=== PATIENT | female | born 1950 | race Caucasian/White ===

== ENCOUNTER 2017-02-27 11:31 | Outpatient (CLI) | payer OTHER ==
--- NOTE | 2017-02-28 16:32 | Mammography Report ---
DIGITAL SCREENING MAMMOGRAM: 02/27/2017 CLINICAL INDICATION: A 66-year-old nulliparous patient for screening. COMPARISON: 10/2014, 05/2013. TECHNIQUE: Routine CC and MLO projections were obtained of the breasts. The breasts demonstrate scattered fibroglandular densities bilaterally. Coarse and punctate, typical ly benign calcifications are present. No suspicious masses, clustered microcalcifications, or region s of architectural distortion are identified. IMPRESSION: BENIGN FINDINGS. RECOMMENDATION: ROUTINE ANNUAL SCREENING UNLESS OTHERWISE CLINICALLY INDICATED. BIRADS CATEGORY: 2, BENIGN FINDINGS. STANDARD QUALIFYING STATEMENTS 1. This examination was reviewed with the aid of Computed-Aided Detection (CAD). 2. A negative or benign imaging report should not delay biopsy if clinically suspicious findings are present. Consider surgical consultation if warranted. More than 5% of cancers are not identified b y imaging. 3. Dense breasts may obscure an underlying neoplasm. JOB #: [id number] EXT JOB #:[id number]
== END 2017-02-27 11:32 | disposition home or self-care (01) ==
LOC: DI 11:31
PROVIDERS: ATTEND Physician Assistant Medical
DX: Z12.31 Encounter for screening mammogram for malignant neoplasm of breast (principal)
CPT/HCPCS: 77067

== ENCOUNTER 2017-06-25 10:35 | Outpatient (CLI) | payer OTHER ==
[2017-06-25 17:55] LABS: BASOPHILS # (AUTO) 0.1 10^3/uL (0.0-0.1); BASOPHILS % (AUTO) 0.8 %; EOSINOPHILS # (AUTO) 0.2 10^3/uL (0.0-0.7); EOSINOPHILS % (AUTO) 1.8 %; LYMPHOCYTES # (AUTO) 2.4 10^3/uL (1.5-3.5); LYMPHOCYTES % (AUTO) 24.9 %; MEAN CORPUSCULAR HEMOGLOBIN 30.5 pg (27.0-31.0); MEAN CORPUSCULAR HGB CONC 33.3 g/dL (32.0-36.0); MEAN CORPUSCULAR VOLUME 91.6 fL (81.0-99.0); MEAN PLATELET VOLUME 9.3 fL (7.9-10.8); MONOCYTES % (AUTO) 9.9 %; NEUTROPHILS # (AUTO) 6.1 10^3/uL (1.5-6.6); NEUTROPHILS % (AUTO) 62.6 %; NUCLEATED RED BLOOD CELLS AUTO 0.1 /100WBC; RED BLOOD COUNT 4.91 10^6/uL (4.20-5.40); RED CELL DISTRIBUTION WIDTH 13.8 % (12.0-15.0); UNCORRECTED WHITE BLOOD COUNT 9.7 x10^3/uL; WHITE BLOOD COUNT 9.7 x10^3/uL (4.8-10.8)
[2017-06-25 18:09] LABS: ALBUMIN/GLOBULIN RATIO 1.3 (1.0-2.2); BILIRUBIN,TOTAL 0.8 mg/dL (0.2-1.0); BUN - BLOOD UREA NITROGEN 10 mg/dL (6-20); CALCIUM 9.2 mg/dL (8.5-10.3); CARBON DIOXIDE - CO2 29 mmol/L (21-32); CHLORIDE 103 mmol/L (101-111); CHOL/HDL RATIO 3.3 (<4.4); CHOLESTEROL 260 mg/dL; CREATININE 0.6 mg/dL (0.4-1.0); GFR - MDRD 101 (>89); GLUCOSE 89 mg/dL (70-100); HDL CHOLESTEROL 79 mg/dL; POTASSIUM 3.6 mmol/L (3.5-5.0); SODIUM 138 mmol/L (135-145); TOTAL PROTEIN 6.8 g/dL (6.7-8.2); TRIGLYCERIDES 113 mg/dL; VLDL CHOLESTEROL 23 mg/dL
== END 2017-06-25 10:36 | disposition home or self-care (01) ==
LOC: LAB.F 10:35
PROVIDERS: ATTEND Physician Assistant Medical
DX: M35.3 Polymyalgia rheumatica (principal); M25.50 Pain in unspecified joint; M79.1 Myalgia; Z51.81 Encounter for therapeutic drug level monitoring; Z79.899 Other long term (current) drug therapy; E78.5 Hyperlipidemia, unspecified
CPT/HCPCS: 36415; 80053; 80061; 85025; 85651; 86140

== ENCOUNTER 2017-07-31 08:00 | Outpatient (CLI) | payer OTHER | END 2017-07-31 08:01 | disposition home or self-care (01) | LOC: LAB.WCP 08:00 | PROVIDERS: ATTEND Physician Assistant Medical | DX: Z11.59 Encounter for screening for other viral diseases (principal); W27.3XXA Contact with needle (sewing), initial encounter; Z11.4 Encounter for screening for human immunodeficiency virus [HIV] | CPT/HCPCS: 36415; 86317; 86704; 86803; 87340; 87389 ==

== ENCOUNTER 2017-09-02 10:37 | Outpatient (CLI) | payer OTHER ==
--- NOTE | 2017-09-05 12:32 | DEXA Report ---
DEXA SCAN: 09/02/2017 CLINICAL INDICATION: Postmenopausal. TECHNIQUE: Dual energy x-ray absorptiometry (DXA) was performed on a 1SDK system. Regions measured are the AP spine, femoral neck, and, if needed, forearm. COMPARISON: None. In accordance with the International Society for Clinical Densitometry (ISCD) guidelines, data from previous exams may be reanalyzed using current recommendations and techniques. This is done to allow a more accurate basis for comparison with the current study. FINDINGS: The data for the lumbar spine is as follows: REGION BMD (g/cm/cm) T-SCORE Z-SCORE L1 1.075 -0.5 0.4 L2 1.224 0.2 1.0 L3 1.175 -0.2 0.6 L4 1.197 0.0 0.8 TOTAL 1.170 -0.1 0.7 NOTE: All evaluable vertebrae are used for classification. The data for the hip is as follows: REGION BMD (g/cm/cm) T-SCORE Z-SCORE Neck 0.749 -2.1 -1.1 TOTAL 0.819 -1.5 -0.9 IMPRESSION THE WHO CLASSIFICATION BASED ON THE INTERNATIONAL REFERENCE STANDARD: OSTEOPENIA. THE FRACTURE RISK: INCREASED. RECOMMENDATION: Patients with diagnosis of osteoporosis or osteopenia should have regular bone mineral density assessment. For those eligible for Medicare, routine testing is allowed once every 2 years. Testing frequency can be increased for patients who have rapidly progressing disease or for those who are receiving medical therapy to restore bone mass. COMMENT: World Health Organization (WHO) definitions for osteoporosis and osteopenia: NORMAL BMD: T-score at -1.0 or higher, fracture risk is low. OSTEOPENIA BMD: T-score between -1.0 and -2.5, fracture risk is increased. OSTEOPOROSIS BMD: T-score at -2.5 or lower, fracture risk high. National Osteoporosis Foundation recommends: 1. Obtain adequate dietary calcium (at least 1200 mg per day) and vitamin D ( 400-800 international units per day). 2. Participate, as appropriate, in regular weight bearing and muscle- strengthening exercise. 3. Avoid tobacco use and reduce alcohol and caffeine intake. 4. For more detailed information see the website at www.NOF.org. BUFFY TD: 09/02/2017 16:39 [facility]ENTERMadel[facility]
== END 2017-09-02 10:38 | disposition home or self-care (01) ==
LOC: DI 10:37
PROVIDERS: ATTEND Internal Medicine Rheumatology
DX: M81.8 Other osteoporosis without current pathological fracture (principal); M85.80 Other specified disorders of bone density and structure, unspecified site
CPT/HCPCS: 77080

== ENCOUNTER 2018-10-06 10:14 | Outpatient (CLI) | payer OTHER ==
[2018-10-06 17:57] LABS: BASOPHILS # (AUTO) 0.1 10^3/uL (0.0-0.1); BASOPHILS % (AUTO) 0.7 %; EOSINOPHILS # (AUTO) 0.2 10^3/uL (0.0-0.7); EOSINOPHILS % (AUTO) 2.2 %; HGB - HEMOGLOBIN 15.9 g/dL (12.0-16.0); LYMPHOCYTES # (AUTO) 2.8 10^3/uL (1.5-3.5); LYMPHOCYTES % (AUTO) 32.4 %; MEAN CORPUSCULAR HEMOGLOBIN 30.5 pg (27.0-31.0); MEAN CORPUSCULAR HGB CONC 33.4 g/dL (32.0-36.0); MEAN CORPUSCULAR VOLUME 91.3 fL (81.0-99.0); MEAN PLATELET VOLUME 8.7 fL (7.9-10.8); MONOCYTES % (AUTO) 11.4 %; NEUTROPHILS # (AUTO) 4.7 10^3/uL (1.5-6.6); NEUTROPHILS % (AUTO) 53.3 %; PLT - PLATELET COUNT 212 10^3/uL (130-450); RED BLOOD COUNT 5.21 10^6/uL (4.20-5.40); RED CELL DISTRIBUTION WIDTH 14.2 % (12.0-15.0); WHITE BLOOD COUNT 8.8 x10^3/uL (4.8-10.8)
[2018-10-06 18:21] LABS: ALBUMIN 3.8 g/dL (3.2-5.5); ALBUMIN/GLOBULIN RATIO 1.2 (1.0-2.2); ALKALINE PHOSPHATASE 40 IU/L (42-121); ALT ALANINE AMINOTRANSFERASE 63 IU/L (10-60); AST ASPARTATE AMINOTRANSFERASE 54 IU/L (10-42); BILIRUBIN,TOTAL 0.9 mg/dL (0.2-1.0); BUN - BLOOD UREA NITROGEN 15 mg/dL (6-20); CALCIUM 9.6 mg/dL (8.5-10.3); CARBON DIOXIDE - CO2 30 mmol/L (21-32); CHLORIDE 99 mmol/L (101-111); CHOL/HDL RATIO 3.2 (<4.4); CHOLESTEROL 259 mg/dL; CREATININE 0.6 mg/dL (0.4-1.0); GFR - MDRD 100 (>89); GLUCOSE 87 mg/dL (70-100); HDL CHOLESTEROL 81 mg/dL; LDL CHOLESTEROL,CALCULATED 153 mg/dL; LDL/HDL RATIO 1.9 (<4.4); SODIUM 140 mmol/L (135-145); VLDL CHOLESTEROL 25 mg/dL
== END 2018-10-06 10:15 | disposition home or self-care (01) ==
LOC: LAB.F 10:14
PROVIDERS: ATTEND Internal Medicine Rheumatology
DX: M35.3 Polymyalgia rheumatica (principal); M25.50 Pain in unspecified joint; E78.5 Hyperlipidemia, unspecified; I10 Essential (primary) hypertension
CPT/HCPCS: 36415; 80053; 80061; 83721; 85025; 85651; 86140

== ENCOUNTER 2018-10-23 10:46 | Outpatient (CLI) | payer MEDICARE | END 2018-10-23 10:47 | disposition home or self-care (01) | LOC: LAB.F 10:46 | PROVIDERS: ATTEND Physician Assistant Medical | DX: R74.8 Abnormal levels of other serum enzymes (principal) | CPT/HCPCS: 36415; 80053 ==

== ENCOUNTER 2018-11-17 11:10 | Outpatient (CLI) | payer MEDICARE ==
--- NOTE | 2018-11-17 14:36 | Ultrasound Report ---
Reason: AAA SCREEN- TOBACCO ABUSE Procedure Date: 11/17/2018 Accession Number: [id number] / [id number] Procedure: US - Aorta Screening CPT Code: FULL RESULT: EXAM: AORTIC DOPPLER ULTRASOUND EXAM DATE: 11/17/2018 11:34 AM. CLINICAL HISTORY: AAA SCREEN- TOBACCO ABUSE. COMPARISON: None. TECHNIQUE: Real-time sonographic imaging of retroperitoneal vascular structures, including color-flow, Doppler flow and spectral analysis was performed by the hospital secretary. Multiple airline security representative static images were saved for review. FINDINGS: Aorta: The abdominal aorta was adequately visualized. No evidence for abdominal aortic aneurysm. Aorta: Proximal: Sagittal AP: 2.4 cm. Mid: Transverse: 1.9 x 1.8 cm. Distal: Transverse: 1.7 x 1.6 cm. Caliber WNL: Yes. Plaque visualized: No. Iliacs: Right Iliac: Transverse: 1.1 x 1.0 cm. Left Iliac: Transverse: 1.0 x 0.9 cm. Iliac Vessels: The visualized proximal common iliac arteries are normal in caliber. Other: None. IMPRESSION: No abdominal aortic aneurysm is identified. RADIA
== END 2018-11-17 11:11 | disposition home or self-care (01) ==
LOC: DI 11:10
PROVIDERS: ATTEND Physician Assistant Medical
DX: Z13.6 Encounter for screening for cardiovascular disorders (principal); Z72.0 Tobacco use
CPT/HCPCS: 76706

== ENCOUNTER 2018-12-10 10:28 | Outpatient (CLI) | payer MEDICARE ==
[2018-12-10 10:52] LABS: ALBUMIN 3.9 g/dL (3.2-5.5); ALBUMIN/GLOBULIN RATIO 1.1 (1.0-2.2); BILIRUBIN,TOTAL 1.2 mg/dL (0.2-1.0); CALCIUM 10.1 mg/dL (8.5-10.3); CREATININE 1.1 mg/dL (0.4-1.0); TOTAL PROTEIN 7.4 g/dL (6.7-8.2)
== END 2018-12-10 10:29 | disposition home or self-care (01) ==
LOC: LAB 10:28
PROVIDERS: ATTEND Physician Assistant Medical
DX: R74.8 Abnormal levels of other serum enzymes (principal)
CPT/HCPCS: 36415; 80053

== ENCOUNTER 2018-12-11 16:19 | Outpatient (CLI) | payer MEDICARE ==
--- NOTE | 2018-12-12 10:16 | Mammography Report ---
Reason: SCREENING MAMMO Procedure Date: 12/11/2018 Accession Number: [id number] / [id number] Procedure: RANGEL - Screening Mammo w/Olvin CPT Code: FULL RESULT: EXAM: Screening Mammo w/Olvin DATE: 12/11/2018 5:10 PM CLINICAL HISTORY: Screening encounter. History of nulliparity. TECHNIQUE: Bilateral CC and MLO views were obtained. COMPARISON: 02/27/2017 and 06/11/2013. FINDINGS: The breasts demonstrate scattered fibroglandular densities bilaterally. There are coarse typically benign calcifications. No suspicious masses, clustered microcalcifications, or regions of architectural distortion are identified. IMPRESSION: Benign findings RECOMMENDATION: Routine annual screening unless otherwise clinically indicated. BIRADS CATEGORY 2: Benign findings STANDARD QUALIFYING STATEMENTS: 1. This examination was not reviewed with the aid of Computer-Aided Detection (CAD). 2. A negative or benign imaging report should not delay biopsy if clinically suspicious findings are present. Consider surgical consultation if warrented. More than 5% of cancers are not identified by imaging. 3. Dense breasts may obscure an underlying neoplasm. 4. This examination was reviewed with the aid of 3D breast imaging (tomosynthesis).
== END 2018-12-11 16:20 | disposition home or self-care (01) ==
LOC: DI 16:19
DX: Z12.31 Encounter for screening mammogram for malignant neoplasm of breast (principal)
CPT/HCPCS: 77063; 77067

== ENCOUNTER 2019-03-10 07:28 | Day surgery (SDC) | payer MEDICARE ==
[2019-03-10] MEDS ORDERED: CEFAZOLIN SODIUM IN 0.9 % NACL 2 GM/100 ML BAG IV ONE (07:36)
[2019-03-10] MEDS ORDERED: LACTATED RINGERS 1,000 ML IV ONE ×2 (08:01→11:16)
--- NOTE | 2019-03-10 08:12 | ANESTHESIA ---
Pre-Anesthesia VS, & Labs - Diagnosis acalculous cholecystitis - Procedure laparoscopic cholecystectomy Vital Signs: Temp Pulse Resp BP Pulse Ox 36.3 C L 73 16 119/81 H 93 03/10/19 07:41 03/10/19 07:41 03/10/19 07:41 03/10/19 07:41 03/10/19 07:41 Height 5 ft 2 in Weight (kg) 83.3 kg - NPO >8 hours - Is Patient ?: Not Applicable Home Medications and Allergies Home Medications: Ambulatory Orders Albuterol Sulf [Ventolin Hfa Inhaler] 1 - 2 puffs INH Q4HR PRN 03/09/19 Alendronate [Fosamax] 70 mg PO Q7D 03/09/19 Ketoconazole 1 applic TP BID PRN 03/09/19 Triamterene/Hydrochlorothiazid [Triamterene-Hctz 37.5-25 mg Cp] 1 each PO DAILY 03/09/19 Valacyclovir HCl [Valtrex] 500 mg PO BID PRN 03/09/19 oxyCODONE [Roxicodone] 1 PRN 03/10/19 Lisinopril 40 mg PO DAILY 07/21/13 Prednisone 2 - 2.5 mg PO DAILY 07/21/13 Albuterol Sulf [Ventolin Hfa Inhaler] 1 - 2 puffs INH Q4HR PRN 03/09/19 Alendronate [Fosamax] 70 mg PO Q7D 03/09/19 Ketoconazole 1 applic TP BID PRN 03/09/19 Triamterene/Hydrochlorothiazid [Triamterene-Hctz 37.5-25 mg Cp] 1 each PO DAILY 03/09/19 Valacyclovir HCl [Valtrex] 500 mg PO BID PRN 03/09/19 Allergies/Adverse Reactions: Allergies Allergy/AdvReac Type Severity Reaction Status Date / Time NSAIDS (Non-Steroidal AdvReac severe Verified 03/09/19 12:06 Anti-Inflamma stomach pain Anes History & Medical History - Anesthetic History Anesthesia Complications: reports: No previous complications Family history of Anesthesia Complications: Denies Family history of Malignant Hyperthermia: Denies (polymyalgia rhumatica) - Medical History Cardiovascular: reports: Hypertension, Other Pulmonary: reports: None Gastrointestinal: reports: Other Urinary: reports: None Musculoskeletal: reports: Other Endocrine/Autoimmune: reports: None Skin: reports: None Smoking Status: Never smoker - Surgical History Cardiothoracic: Cardiac catheterization Orthopedic: Knee replacement, Arthroscopic surgery, Other Exam General: Alert, Oriented x3, Cooperative, No acute distress Dental: Other (caps) Mouth Openin Fingerbreadth Neck Mobility: Normal Mallampati classification: II Thyromental Distance: 4-6 cm Respiratory: Lungs clear, Normal breath sounds, No respiratory distress, No accessory muscle use Cardiovascular: Regular rate, Normal S1, Normal S2, No murmurs Plan Anesthesia Type: General Consent for Procedure(s) Verified and Reviewed: No Code Status: Attempt Resuscitation ASA classification: 2-Mild systemic disease Is this case an emergency?: No
[2019-03-10] MEDS ORDERED: LIDOCAINE 1% 50 ML MDV ONE (08:54)
[2019-03-10] MEDS ORDERED: BUPIVACAINE 0.5%-EPI 1:200000 PF 30 ML VIAL ONE (08:54)
[2019-03-10] MEDS ORDERED: ONDANSETRON 4 MG/2 ML VIAL IVP ONE (09:00)
[2019-03-10] MEDS ORDERED: NEOSTIGMINE 1 MG/1 ML 10 ML MDV IVP ONE (09:00)
[2019-03-10] MEDS ORDERED: GLYCOPYRROLATE 1 MG/5 ML VIAL IVP ONE (09:00)
[2019-03-10] MEDS ORDERED: MIDAZOLAM 2 MG/2 ML VIAL IVP ONE (09:00)
[2019-03-10] MEDS ORDERED: PROPOFOL 200 MG/20 ML VIAL IVP ONE (09:00)
[2019-03-10] MEDS ORDERED: LIDOCAINE-MPF 2% 5 ML VIAL IM ONE (09:00)
[2019-03-10] MEDS ORDERED: SODIUM CHLORIDE 0.9% 10 ML VIAL IV ONE (09:00)
[2019-03-10] MEDS ORDERED: fentaNYL 100 MCG/2 ML VIAL IVP ONE (09:00)
[2019-03-10] MEDS ORDERED: ROCURONIUM 50 MG/5 ML VIAL IVP ONE (09:00)
[2019-03-10] MEDS ORDERED: DEXAMETHASONE 4 MG/ML VIAL IVP ONE (09:00)
[2019-03-10] MEDS ORDERED: ACETAMINOPHEN 1,000 MG/100 ML 100 ML IV ONE (09:42)
[2019-03-10] MEDS ORDERED: LIDOCAINE 1% 10 ML MDV SUBQ ONE (09:43)
[2019-03-10] MEDS ORDERED: BUPIVACAINE 0.5%-EPI 1:200000 PF 30 ML VIAL SUBQ ONE (09:43)
--- NOTE | 2019-03-10 10:17 | OPERATIVE REPORT ---
Operative Report - General Procedure Date: 03/10/19 Planned Procedure: Laparoscopic cholecystectomy Pre-Op Diagnosis: Acalculus cholecystitis Procedure Performed: Laparoscopic cholecystectomy Post Op Diagnosis: Same - Procedure Note Primary Surgeon: Taylor Anesthesia Provider: SAY Lala Anesthesia Technique: General ET tube, Local Pathology: Gall bladder in formalin to pathology IV Fluids (mL): 600 Estimated Blood Loss (mL): 25 Findings: Distended and thin walled gall bladder Complications: None apparent - Other Other Information/Narrative: After obtaining informed consent, the patient is brought to the operating room and placed in the supine position on the operating table. Following successful induction of general endotracheal anesthesia, appropriate padding of all bony prominences, and placement of appropriate monitors, the abdomen is prepped and draped in the standard surgical fashion. A timeout was held per DCOAP protocol. Following infiltration with local anesthetic to create a field block, an incision was created inferior to the umbilicus and carried down through the skin and subtendinous tissue to reveal the fascia below 2-0 Vicryl retention sutures were placed on either side of the midline and the abdomen was entered using 15 blade scalpel and under direct vision. A 10 mm blunt Wan balloon trocar was placed in the abdominal cavity and it was insufflated to 15 mmHg pressure. The patient was placed in reverse Trendelenburg position with the left side rotated toward the floor.We were able to visualize the right upper quadrant, gallbladder, liver, and surrounding structures.A second trocar was placed in the mid epigastrium, a 5 mm trocar. 2 more 5 mm trochars were placed in the right upper quadrant.The gallbladder was elevated superiorly and to the patient's right side. This allowed us to visualize the cholecystohepatoduodenal ligament. We were able to clearly identify the cystic duct, and common duct as well as the right hepatic artery and the cystic artery. We addressed the cystic duct first by clipping it 3 times proximally and one time distally with a 5 mm clip door opener. We then addressed the cystic artery clipping it twice proximally and once distally. The gallbladder was then liberated from its bed in the liver using Bovie cautery. It was placed in a bag and removed via the umbilical port with the camera in the epigastric position. We then replaced the camera and examined the abdominal cavity carefully.Cavity was irrigated copiously with warm saline solution, checked for hemostasis carefully, and then aspirated free of all fluid and particulate matter.The patient was flattened in the intra- abdominal compartment examined once more. We were satisfied that hemostasis was clearly obtained, the trochars were removed under direct vision and the abdomen was desufflated. The umbilical incision was closed with interrupted 0 Vicryl suture and Monocryl stitches were placed in all of the skin sites.All sponge, needle, and instrument counts were correct at the conclusion of the case. The patient was allowed to awaken from anesthesia without difficulty and taken to the postanesthesia care unit in good condition.
[2019-03-10] MEDS ORDERED: ONDANSETRON 4 MG/2 ML VIAL IVP PRN (10:22)
[2019-03-10] MEDS ORDERED: oxyCODONE 5 MG TABLET PO PRN (10:22)
[2019-03-10] MEDS: fentaNYL 100 MCG/2 ML VIAL ONE ×2 (10:42→10:54)
[2019-03-10] MEDS ORDERED: HYDROmorphone 0.5 MG/0.5 ML SYRINGE ONE (11:13)
[2019-03-10] MEDS ORDERED: oxyCODONE 5 MG TABLET ONE (11:38)
[2019-03-10 12:16] VITALS: BP 97/67
== END 2019-03-10 07:29 | disposition home or self-care (01) ==
LOC: SDS 07:28
PROVIDERS: ATTEND Surgery
PROC: 0FT44ZZ Resection of Gallbladder, Percutaneous Endoscopic Approach (ICD-10-PCS; principal; 2019-03-10 08:30)
DX: K81.1 Chronic cholecystitis (principal); I10 Essential (primary) hypertension; Z87.891 Personal history of nicotine dependence
CPT/HCPCS: 47562; 93005; A9270; J0131; J0690; J1170; J7120

== ENCOUNTER 2019-03-12 19:28 | Emergency (ER) | payer MEDICARE ==
[2019-03-12 19:57] LABS: BASOPHILS # (AUTO) 0.1 10^3/uL (0.0-0.1); BASOPHILS % (AUTO) 0.3 %; HGB - HEMOGLOBIN 13.9 g/dL (12.0-16.0); LYMPHOCYTES # (AUTO) 0.9 10^3/uL (1.5-3.5); LYMPHOCYTES % (AUTO) 3.7 %; MEAN CORPUSCULAR HEMOGLOBIN 31.2 pg (27.0-31.0); MEAN CORPUSCULAR HGB CONC 32.9 g/dL (32.0-36.0); MEAN CORPUSCULAR VOLUME 95.1 fL (81.0-99.0); MEAN PLATELET VOLUME 9.5 fL (7.9-10.8); MONOCYTES # (AUTO) 1.6 10^3/uL (0.0-1.0); NEUTROPHILS # (AUTO) 20.4 10^3/uL (1.5-6.6); PLT - PLATELET COUNT 164 10^3/uL (130-450); RED BLOOD COUNT 4.45 10^6/uL (4.20-5.40); RED CELL DISTRIBUTION WIDTH 13.6 % (12.0-15.0); WHITE BLOOD COUNT 23.4 x10^3/uL (4.8-10.8)
[2019-03-12 20:06] LABS: ALBUMIN 3.9 g/dL (3.2-5.5); BILIRUBIN,TOTAL 1.8 mg/dL (0.2-1.0); CALCIUM 9.6 mg/dL (8.5-10.3); CREATININE 1.2 mg/dL (0.4-1.0); TOTAL PROTEIN 7.8 g/dL (6.7-8.2)
[2019-03-12] MEDS ORDERED: ACETAMINOPHEN 1,000 MG/100 ML 100 ML IV STA (20:06)
[2019-03-12] MEDS ORDERED: SODIUM CHLORIDE 0.9% 1,000 ML IV ONE ×2 (20:07)
[2019-03-12] MEDS ORDERED: VANCOMYCIN INJ 2 GM in SODIUM CHLORIDE 0.9% 500 ML IV STA (20:08)
[2019-03-12] MEDS ORDERED: ONDANSETRON 4 MG/2 ML VIAL IVP STA ×2 (20:08→23:49)
[2019-03-12] MEDS ORDERED: PIPERACILLIN/TAZOBACTAM 4.5 GM in SODIUM CHLORIDE 0.9% MINIBAG 100 ML IV STA (20:08)
[2019-03-12] MEDS ORDERED: metroNIDAZOLE 500 MG/100 ML 500 MG/100 ML BAG IV ONE (20:09)
[2019-03-12 20:16] LABS: INR 1.1 (0.8-1.2); PT - PROTHROMBIN TIME 12.7 secs (9.9-12.6)
[2019-03-12 20:23] LABS: PARTIAL THROMBOPLASTIN TIME 25.5 secs (24.9-33.3)
--- NOTE | 2019-03-12 20:23 | XRAY Report ---
Reason: fever Procedure Date: 03/12/2019 Accession Number: [id number] / [id number] Procedure: XR - Chest 1 View X-Ray CPT Code: 41935 FULL RESULT: EXAM: CHEST RADIOGRAPHY EXAM DATE: 03/12/2019 08:02 PM. CLINICAL HISTORY: Fever. COMPARISON: 06/24/2014 2:26 PM. TECHNIQUE: 1 view. FINDINGS: Lungs/Pleura: Lesser degree of inspiration compared to previous exam. Small bilateral pleural effusions. Possible left basilar infiltrate versus atelectasis. Clear upper lung zones. No pneumothorax. Mediastinum: Within exam limitations, the cardiomediastinal contour is normal. Other: None. IMPRESSION: Left basilar atelectasis versus infiltrate with small bilateral pleural effusions. RADIA
[2019-03-12] MEDS ORDERED: IOVERSOL 320 100 ML VIAL IVP ONE ×2 (20:29→21:05)
[2019-03-12 20:34] LABS: BILIRUBIN,URINE NEGATIVE (NEGATIVE); GLUCOSE, URINE (UA) NEGATIVE (NEGATIVE); KETONES,URINE (UA) 15 mg/dL (NEGATIVE); LEUKOCYTE ESTERASE, URINE NEGATIVE (NEGATIVE); NITRITE,URINE NEGATIVE (NEGATIVE); OCCULT BLOOD,URINE SMALL (NEGATIVE); PROTEIN,URINE 30 mg/dL (NEGATIVE); UROBILINOGEN,URINE 0.2 (NORMAL) E.U./dL (NORMAL)
[2019-03-12 20:36] LABS: CLARITY,URINE CLEAR (CLEAR)
[2019-03-12] MEDS ORDERED: WATER FOR INJECTION,STERILE 40 ML ONE (20:42)
[2019-03-12 20:46] LABS: BACTERIA,URINE Rare /HPF (None Seen); CASTS, URINE 0-2 Hyaline Casts /LPF; RBC,URINE 0-5 /HPF (0-5); SQUAMOUS EPITHELIAL CELL,UR FEW Squamous (<= Few)
[2019-03-12 20:59] LABS: PLATELET ESTIMATE, MANUAL NORMAL (130-450,000) (NORMAL); PLATELET MORPHOLOGY NORMAL APPEARANCE (NORMAL); RBC MORPHOLOGY (MULTIPLE) NORMAL APPEARANCE (NORMAL)
--- NOTE | 2019-03-12 21:15 | ED Physician Documentation ---
History of Present Illness - Stated complaint Stated Complaint: FEVER/ABD PX - Chief complaint Chief Complaint: Abd Pain - History obtained from History obtained from: Patient, Family - History of Present Illness Timing: How many days ago (2) Pain level max: 10 Pain level now: 10 - Additonal information Additional information: 68-year-old female status post laparoscopic cholecystectomy 2 days ago. Fevers of 10 2-1 03 since that time. Continued right upper quadrant and right side pain. Not well controlled at home. Not able to eat or drink. Has not eaten or drank today. Nothing makes it better. Worse with movement and palpation Review of Systems Ten Systems: 10 systems reviewed and negative Constitutional: reports: Fever, Chills Nose: denies: Rhinorrhea / runny nose, Congestion Throat: denies: Sore throat Cardiac: denies: Chest pain / pressure Respiratory: reports: Wheezing. denies: Cough Skin: denies: Rash Musculoskeletal: denies: Neck pain, Back pain Neurologic: denies: Headache PD PAST MEDICAL HISTORY - Past Medical History Past Medical History: Yes Cardiovascular: Hypertension, Other Respiratory: None Endocrine/Autoimmune: None GI: Other : None HEENT: None Psych: None Musculoskeletal: Other Derm: None - Past Surgical History Past Surgical History: Yes General: Cholecystectomy Ortho: Knee replacement, Arthroscopic surgery, Other Cardiovascular: Cardiac catheterization - Present Medications Home Medications: Ambulatory Orders Medication Instructions Recorded Confirmed Lisinopril 40 mg PO DAILY 07/21/13 03/10/19 Prednisone 2 - 2.5 mg PO DAILY 07/21/13 03/10/19 Albuterol Sulf [Ventolin Hfa 1 - 2 puffs INH Q4HR PRN 03/09/19 03/10/19 Inhaler] Alendronate [Fosamax] 70 mg PO Q7D 03/09/19 03/10/19 Ketoconazole 1 applic TP BID PRN 03/09/19 03/10/19 Triamterene/Hydrochlorothiazid 1 each PO DAILY 03/09/19 03/10/19 [Triamterene-Hctz 37.5-25 mg Cp] Valacyclovir HCl [Valtrex] 500 mg PO BID PRN 03/09/19 03/10/19 oxyCODONE [Roxicodone] 1 PRN 03/10/19 oxyCODONE/ACET 5/325 [Percocet 5 1 each PO Q4-6H #30 tablet MDD 6 03/10/19 mg/325 mg] - Allergies Allergies/Adverse Reactions: Allergies Allergy/AdvReac Type Severity Reaction Status Date / Time NSAIDS (Non-Steroidal AdvReac severe Verified 03/12/19 19:37 Anti-Inflamma stomach pain - Social History Does the pt smoke?: No Smoking Status: Never smoker Does the pt drink ETOH?: No Does the pt have substance abuse?: No - Immunizations Immunizations are current?: Yes - POLST Patient has POLST: No PD ED PE NORMAL - Vitals Vital signs reviewed: Yes - General General: Alert and oriented X 3, No acute distress, Other (Ill-appearing) - HEENT HEENT: Moist mucous membranes, Pharynx benign - Neck Neck: Supple, no meningeal sign - Cardiac Cardiac: Other (Tachycardic) - Respiratory Respiratory: No respiratory distress, Other (Wheezing bilateral) - Abdomen Abdomen: Soft, Non distended, Other (Tender to palpation right upper quadrant. Positive rebound and guarding) - Back Back: Other (Right CVA tenderness) - Derm Derm: Warm and dry, No rash - Extremities Extremities: No edema - Neuro Neuro: Alert and oriented X 3 - Psych Psych: Normal mood, Normal affect Results - Vitals Vitals: Vital Signs - 24 hr 03/12/19 03/12/19 03/12/19 19:31 19:57 20:06 Temperature 39.5 C H Heart Rate 128 H 128 H 123 H Respiratory 14 32 H 29 H Rate Blood Pressure 144/79 H 161/84 H 147/89 H O2 Saturation 90 L 94 94 03/12/19 03/12/19 03/12/19 20:30 20:39 21:07 Temperature 37.7 C H Heart Rate 128 H 122 H Respiratory 25 H 25 H Rate Blood Pressure 147/89 H 136/80 H O2 Saturation 94 93 03/12/19 03/12/19 03/12/19 21:13 21:30 22:00 Temperature 37.5 C Heart Rate 114 H 107 H Respiratory 19 18 Rate Blood Pressure 102/75 112/79 O2 Saturation 94 94 03/12/19 03/12/19 22:30 23:05 Temperature 36.8 C Heart Rate 97 Respiratory 16 Rate Blood Pressure 106/73 O2 Saturation 95 Oxygen O2 Source Nasal cannula Oxygen Flow Rate 2 - Labs Labs: Laboratory Tests 03/12/19 03/12/19 03/12/19 19:45 19:45 19:45 WBC 23.4 H RBC 4.45 Hgb 13.9 Hct 42.3 MCV 95.1 MCH 31.2 H MCHC 32.9 RDW 13.6 Plt Count 164 MPV 9.5 Neut # (Auto) 20.4 H Lymph # (Auto) 0.9 L [place] # (Auto) 1.6 H Eos # (Auto) 0.0 Baso # (Auto) 0.1 Absolute Nucleated RBC 0.00 Nucleated RBC % 0.0 Manual Slide Review Indicated WBC Morphology NORMAL APPEARANCE Platelet Estimate NORMAL (130-450,000) Platelet Morphology NORMAL APPEARANCE RBC Morph Micro Appear NORMAL APPEARANCE PT 12.7 H INR 1.1 APTT 25.5 Sodium 131 L Potassium 4.5 Chloride 99 L Carbon Dioxide 21 Anion Gap 11.0 BUN 25 H Creatinine 1.2 H Estimated GFR (MDRD) 45 L Glucose 125 H Lactic Acid Calcium 9.6 Total Bilirubin 1.8 H AST 45 H ALT 30 Alkaline Phosphatase 52 Total Protein 7.8 Albumin 3.9 Globulin 3.9 Albumin/Globulin Ratio 1.0 Lipase 19 L Urine Color Urine Clarity Urine pH Ur Specific [place] Urine Protein Urine Glucose (UA) Urine Ketones Urine Occult Blood Urine Nitrite Urine Bilirubin Urine Urobilinogen Ur Leukocyte Esterase Urine RBC Urine WBC Ur Squamous Epith Cells Urine Bacteria Urine Casts Ur Microscopic Review Urine Culture Comments 03/12/19 03/12/19 19:45 20:25 WBC RBC Hgb Hct MCV MCH MCHC RDW Plt Count MPV Neut # (Auto) Lymph # (Auto) [place] # (Auto) Eos # (Auto) Baso # (Auto) Absolute Nucleated RBC Nucleated RBC % Manual Slide Review WBC Morphology Platelet Estimate Platelet Morphology RBC Morph Micro Appear PT INR APTT Sodium Potassium Chloride Carbon Dioxide Anion Gap BUN Creatinine Estimated GFR (MDRD) Glucose Lactic Acid 1.3 Calcium Total Bilirubin AST ALT Alkaline Phosphatase Total Protein Albumin Globulin Albumin/Globulin Ratio Lipase Urine Color YELLOW Urine Clarity CLEAR Urine pH 6.0 Ur Specific [place] 1.010 Urine Protein 30 H Urine Glucose (UA) NEGATIVE Urine Ketones 15 H Urine Occult Blood SMALL H Urine Nitrite NEGATIVE Urine Bilirubin NEGATIVE Urine Urobilinogen 0.2 (NORMAL) Ur Leukocyte Esterase NEGATIVE Urine RBC 0-5 Urine WBC 0-3 Ur Squamous Epith Cells FEW Squamous Urine Bacteria Rare Urine Casts 0-2 Hyaline Casts Ur Microscopic Review INDICATED Urine Culture Comments NOT INDICATED - Rads (name of study) CT abdomen pelvis Radiology: Prelim report reviewed, EMP read contemporaneously, See rad report (Fluid in the gallbladder fossa contiguous with subhepatic fluid wrapping around the tip of the liver concerning for contained bile leak. 2. Fibroid uterus noted. ) PD MEDICAL DECISION MAKING - ED course Complexity details: reviewed results, re-evaluated patient, considered differential, d/w patient, d/w family, d/w service delivery management consultant ED course: 68-year-old female 2 days status post laparoscopic cholecystectomy. Appears to have a subcapsular biloma. Discussed the case with Dr. Soto, general surgery on-call at 8pm. Recommends CT. called with CT results at 2109 and recommends transfer for IR drainage. Patient given IV fluids, vancomycin, Zosyn and Flagyl. Pain controlled with Dilaudid. IV fluids given. Pineda E-pro contacted at 0. Dr. Lea Called back at 2214 and will look for a bed at [facility]. 2299, accepted to [facility] in [place] by Dr. Andrew. Patient will be transferred for further care. This document was made in part using voice recognition software. While efforts are made to proofread this document, sound alike and grammatical errors may occur. Departure - Departure Disposition: 02 Transfer Acute Care Hosp Clinical Impression: Bile leak, postoperative Biloma following surgery Qualifiers: Encounter type: initial encounter Qualified Code(s): T81.89XA - Other complications of procedures, not elsewhere classified, initial encounter Fever Qualifiers: Fever type: unspecified Qualified Code(s): R50.9 - Fever, unspecified Condition: Stable
[2019-03-12] MEDS: HYDROmorphone 1 MG/ML CARPUJECT IVP STA ×2 (21:18→23:53)
--- NOTE | 2019-03-12 21:33 | CT Report ---
Reason: abd pain fever Procedure Date: 03/12/2019 Accession Number: [id number] / [id number] Procedure: CT - Abdomen/Pelvis W CPT Code: FULL RESULT: EXAM: CT ABDOMEN AND PELVIS EXAM DATE: 03/12/2019 09:00 PM. CLINICAL HISTORY: Abdomen pain and fever. Recent gallbladder surgery. COMPARISONS: ABD/PEL 01/22/2008 9:27 AM. TECHNIQUE: Routine helical CT imaging was performed through the abdomen and pelvis. IV contrast: 100 cc of Optiray 320. Enteric contrast: No. Reconstructions: Coronal and sagittal. In accordance with CT protocol optimization, one or more of the following dose reduction techniques were utilized for this exam: automated exposure control, adjustment of mA and/or KV based on patient size, or use of iterative reconstructive technique. FINDINGS: Lung Bases: Mild bibasilar atelectasis. Liver: Normal. No masses. Gallbladder/Bile Ducts: Cholecystectomy. No dilated ducts. Fluid in the gallbladder fossa contiguous with loculated subhepatic fluid collections wrapping around the tip. No air bubbles or enhancing wall. Spleen: Normal. Pancreas: Normal. Adrenal Glands: Normal. Kidneys: Normal. No masses or hydronephrosis. Peritoneal Cavity/Bowel: Normal. No free fluid, free air or adenopathy. No masses or acute inflammatory process. The appendix is well visualized and normal. Pelvic Organs: Fibroid uterus. De La Cruz catheter in the bladder. Vasculature: No aneurysms or other significant abnormality. Bones: Mild lumbar dextroscoliosis. Multilevel degenerative disk disease. Other: Fat stranding and air bubble in the umbilicus compatible with recent laparoscopic procedure. IMPRESSION: 1. Fluid in the gallbladder fossa contiguous with subhepatic fluid wrapping around the tip of the liver concerning for contained bile leak. 2. Fibroid uterus noted. RADIA
[2019-03-12] MEDS ORDERED: HYDROmorphone 1 MG/ML CARPUJECT IVP STA ×2 (22:36→23:49)
[2019-03-12 23:53] VITALS: BP 110/77
== END 2019-03-13 00:02 | disposition short-term general hospital (02) ==
LOC: ED 19:28
DX: K91.89 Other postprocedural complications and disorders of digestive system (principal); I10 Essential (primary) hypertension; R50.9 Fever, unspecified
CPT/HCPCS: 36415; 51702; 71045; 74177; 80053; 81001; 83605; 83690; 85025; 85610; 85730; 87040; 96365; 96367; 96368; 96375; 96376; 99284; J0131; J1170; J3370; Q9967; 81003; 87086; 99285

== ENCOUNTER → 2019-03-13 | Outpatient (CLI) | payer MEDICARE | END | disposition short-term general hospital (02) | LOC: EMS 00:01 | PROVIDERS: ATTEND Surgery | DX: R10.11 Right upper quadrant pain (principal) | CPT/HCPCS: A0425; A0426 ==

== ENCOUNTER 2019-05-20 08:00 | Outpatient (CLI) | payer MEDICARE | END 2019-05-20 23:59 | disposition home or self-care (01) | LOC: LAB.WCP 08:00 | PROVIDERS: ATTEND Internal Medicine Rheumatology | DX: M35.3 Polymyalgia rheumatica (principal) | CPT/HCPCS: 36415; 85651; 86140 ==

== ENCOUNTER 2019-08-31 11:44 | Outpatient (CLI) | payer MEDICARE ==
--- NOTE | 2019-09-01 11:55 | CT Report ---
Reason: RIB PAIN RT SIDED Procedure Date: 08/31/2019 Accession Number: [id number] / [id number] Procedure: CT - CHEST WO CPT Code: Final Report FULL RESULT: EXAM: CT CHEST EXAM DATE: 08/31/2019 12:02 PM. CLINICAL HISTORY: RIB PAIN RT SIDED. COMPARISONS: RIBS 2 VIEW RT 07/29/2019 2:08 PM. TECHNIQUE: Routine helical CT imaging was performed through the chest. IV contrast: None. Reconstructions: Coronal and sagittal. In accordance with CT protocol optimization, one or more of the following dose reduction techniques were utilized for this exam: automated exposure control, adjustment of mA and/or KV based on patient size, or use of iterative reconstructive technique. FINDINGS: Lungs/Pleura: No focal consolidation or pulmonary edema. Mild atelectasis at right lung base. Scattered small pulmonary nodules are present measuring up to 2 mm in the upper lobes and 3 mm in right lower lobe. No pleural effusion. No pneumothorax. Mediastinum: Atherosclerotic vascular disease including coronary artery calcifications. No thoracic aortic aneurysm. Normal cardiac size. No pericardial effusion. No lymphadenopathy. Bones: There is a healing nondisplaced fracture of right anterolateral seventh rib. Suspect subtle healing fracture of right anterolateral eighth rib. No additional fractures. Degenerative changes and endplate changes of thoracic spine. Visualized Abdomen: Cholecystectomy. Incidental duodenal diverticula. No acute abnormality in visualized upper abdomen. Other: Small coarse calcification along left thyroid lobe. IMPRESSION: 1. Healing nondisplaced right anterolateral seventh rib fracture and suspected subtle healing nondisplaced fracture of right anterolateral eighth rib. No additional fractures. 2. Few scattered small nonspecific pulmonary nodules measuring up to 3 mm. Please refer below for follow-up guidelines. Lungs otherwise clear. 3. Cholecystectomy. RADIA Recommend follow-up of the described nodule(s) according to the following guidelines: Fleischner Society Recommendations 2017 MacMahon et al. Radiology 2017 Solid Nodules-Low Risk Patients: <6 mm (single or multiple) - No routine follow-up* 6-8 mm (single) -CT at 6-12 [address], then [address] at 18-24 months 6-8mm (multiple) -CT at 3-6 months, then consider at CT 18-24 months >8 mm (single) -Consider CT, PET/CT, or tissue sampling at 3 months >8 mm (multiple) -CT at 3-6 months, then consider CT at 18-24 months Solid Nodules-High Risk Patients: <6 mm (single or multiple) -Optional CT at 12 months* 6-8 mm (single) -CT at 6-12 months, then CT at 18-24 months 6-8mm (multiple) -CT at 3-6 months, then CT at 18-24 months >8 mm (single) -Consider CT, PET/CT, or tissue sampling at 3 months >8 mm (multiple) -CT at 3-6 months, then at 18-24 months *Nodules < 6mm do not require routine follow-up, but suspicious nodule morphology, upper lobe location, or both may warrant 12 month follow-up Subsolid nodules: <6 mm (single, GG or part solid) -No routine follow-up >=6 mm (single GG) -CT at 6-12 months to confirm, then CT q2 years until 5 years >=6 mm (single part solid) -CT at 3-6 months to confirm, if unchanged and solid <6mm, annual CT for 5 years <6 mm (multiple GG or part solid) -CT at 3-6 months. If stable, consider CT at 2 and 4 years >=6 mm (multiple GG or part solid) -CT at 3-6 months. Subsequent management based on most suspicious nodule(s). Consider follow-up at 2 and 4 years for certain suspicious nodules <6mm. If solid component develops or growth, consider resection.
== END 2019-08-31 11:45 | disposition home or self-care (01) ==
LOC: DI 11:44
PROVIDERS: ATTEND Physician Assistant Medical
DX: S22.31XD Fracture of one rib, right side, subsequent encounter for fracture with routine healing (principal); R91.8 Other nonspecific abnormal finding of lung field; Z90.49 Acquired absence of other specified parts of digestive tract
CPT/HCPCS: 71250

== ENCOUNTER 2020-04-05 10:44 | Outpatient (CLI) | payer MEDICARE ==
--- NOTE | 2020-04-05 12:30 | DEXA Report ---
Reason: OSTEOPOROSIS Procedure Date: 04/05/2020 Accession Number: [id number] / [id number] Procedure: DEX - Dexa Spine and/or Hip CPT Code: Final Report FULL RESULT: PROCEDURE: Dexa Spine and/or Hip INDICATIONS: OSTEOPOROSIS TECHNIQUE: Dual energy x-ray absorptiometry (DXA) was performed on a [employer] System. Regions measured are the AP Spine, femoral neck, and if needed forearm. COMPARISON: DEXA 09/02/2017 FINDINGS: Lumbar Spine: Bone Mineral Density 1.3-1 g/cm/cm,T score 1.2, compared to -0.1 on prior exam Left Hip: Bone Mineral Density 0.870 g/cm/cm,T score -1.1, compared to -1.5 on prior exam. Left Femoral Neck: Bone Mineral Density 0.733 g/cm/cm, T score -2.2, compared to -2.1 on prior exam. (T score greater or equal to -1.0: NORMAL) (T score from -1.1 to -2.4: OSTEOPENIA) (T score less than or equal to -2.5 to: OSTEOPOROSIS) Impression: 1. Normal bone density, improved within the lumbar spine. 2. Improved although minimal osteopenia within the left hip. 3. Persistent moderate to severe osteopenia in the left femoral neck. Patients with diagnosis of osteoporosis or osteopenia should have regular bone mineral density assessment. For those eligible for Medicare, routine testing is allowed once every 2 years. Testing frequency can be increased for patients who have rapidly progressing disease or for those who are receiving medical therapy to restore bone mass. Reviewed by: Olga Denise MD on 04/05/2020 12:28 PM PDT Approved by: Olga Denise MD on 04/05/2020 12:28 PM PDT Station ID: [id number]
== END 2020-04-05 10:45 | disposition home or self-care (01) ==
LOC: DI 10:44
PROVIDERS: ATTEND Internal Medicine Rheumatology
DX: M85.89 Other specified disorders of bone density and structure, multiple sites (principal)
CPT/HCPCS: 77080

== ENCOUNTER 2020-10-24 12:04 | Outpatient (CLI) | payer MEDICARE, BC ==
[2020-10-24] MEDS ORDERED: IOVERSOL 320 100 ML VIAL IVP ONE ×2 (12:48→13:36)
[2020-10-24 13:00] LABS: ALBUMIN 4.3 g/dL (3.2-5.5); ALBUMIN/GLOBULIN RATIO 1.3 (1.0-2.2); BILIRUBIN,TOTAL 0.8 mg/dL (0.2-1.0); CALCIUM 9.8 mg/dL (8.5-10.3); CREATININE 1.2 mg/dL (0.4-1.0); TOTAL PROTEIN 7.7 g/dL (6.7-8.2)
--- NOTE | 2020-10-24 13:21 | XRAY Report ---
PROCEDURE: Shoulder 3 View LT INDICATIONS: LT SHLDR IMPINGEMENT TECHNIQUE: 3 views of the shoulder were acquired. COMPARISON: None. FINDINGS: Bones: No fractures or dislocations. No suspicious bony lesions. Visualized ribs appear intact. M ild periarticular osteophyte formation at the acromioclavicular and glenohumeral joints. Soft tissues: No suspicious soft tissue calcifications. IMPRESSION: Osteoarthritis. No acute fracture. No osseous lesion. If symptoms and/or clinical suspic ion for pathology continue, further assessment with repeat plain films, or advanced imaging (e.g., CT , MRI, or bone scan) is recommended for further assessment. Reviewed by: Shira Hu MD on 10/24/2020 1:19 PM PST Approved by: Shira Hu MD on 10/24/2020 1:19 PM PST Station ID: [id number]
--- NOTE | 2020-10-24 14:25 | CT Report ---
PROCEDURE: CHEST W INDICATIONS: PULMONARY NODULE CONTRAST: IV CONTRAST: Optiray 320 ml: 100 PO CONTRAST: *NO PO CONTRAST TECHNIQUE: After the administration of intravenous contrast, 5 mm thick sections acquired from the pulmonary api astrid to the posterior costophrenic angles. 7 mm thick coronal MIP reformats were acquired. For radia tion dose reduction, the following was used: automated exposure control, adjustment of mA and/or kV according to patient size. COMPARISON: 08/31/2019 CT examination FINDINGS: Image quality: Excellent. Lungs and pleura: No acute air space opacities. There are several small, 2-3 mm diameter bilateral upper lobe predominant pulmonary nodules, as before (for example within the right upper lobe posterol aterally on series 4 image 82, and within the left upper lobe posterior laterally on series 4 image 6 3, and within the right lower lobe posterolaterally on series 9 image 114). No new pulmonary nodules are present pleural effusions or pneumothorax. Central and peripheral airways are patent and normal in caliber. Mediastinum: Heart size is normal. Moderate atherosclerotic calcification of the coronary vasculatu re. No pericardial effusion. No mediastinal or hilar adenopathy by size criteria. Thoracic aorta an d central pulmonary arteries are normal in size. Esophagus is normal in caliber. There is a new smal l hiatal hernia. Bones and chest wall: No suspicious bony lesions. No vertebral body compression fractures. No axil flower or supraclavicular adenopathy by size criteria. No change in calcified left thyroid nodule. Scle rotic focus within the right anterolateral seventh rib is present, as before, compatible with healed fracture. Abdomen: Visualized portions of the upper abdomen demonstrate an incompletely visualized duodenal di verticulum, as well as cholecystectomy clips. IMPRESSION: 1. No change in bilateral small pulmonary nodules. 2. Mild coronary artery disease. 3. Small hiatal hernia. 4. No change in calcified left thyroid nodule, which could be further assessed with ultrasound, if cl inically indicated. Reviewed by: Shira Hu MD on 10/24/2020 2:24 PM PST Approved by: Shira Hu MD on 10/24/2020 2:24 PM PST Station ID: [id number]
== END 2020-10-24 12:05 | disposition home or self-care (01) ==
LOC: LAB 12:04
PROVIDERS: ATTEND Physician Assistant Medical
DX: E78.5 Hyperlipidemia, unspecified (principal); R91.8 Other nonspecific abnormal finding of lung field; I25.10 Atherosclerotic heart disease of native coronary artery without angina pectoris; K44.9 Diaphragmatic hernia without obstruction or gangrene; E04.1 Nontoxic single thyroid nodule; M19.012 Primary osteoarthritis, left shoulder
CPT/HCPCS: 36415; 71260; 73030; 80053; Q9967

== ENCOUNTER 2020-11-03 10:46 | Outpatient (CLI) | payer MEDICARE, BC ==
[2020-11-03 11:04] LABS: BASOPHILS # (AUTO) 0.1 10^3/uL (0.0-0.1); BASOPHILS % (AUTO) 0.9 %; EOSINOPHILS # (AUTO) 0.3 10^3/uL (0.0-0.7); EOSINOPHILS % (AUTO) 2.5 %; HGB - HEMOGLOBIN 14.3 g/dL (12.0-16.0); LYMPHOCYTES # (AUTO) 2.3 10^3/uL (1.5-3.5); LYMPHOCYTES % (AUTO) 22.5 %; MEAN CORPUSCULAR HGB CONC 31.4 g/dL (32.0-36.0); MEAN CORPUSCULAR VOLUME 92.5 fL (81.0-99.0); MEAN PLATELET VOLUME 9.6 fL (7.9-10.8); MONOCYTES % (AUTO) 9.9 %; NEUTROPHILS # (AUTO) 6.5 10^3/uL (1.5-6.6); NEUTROPHILS % (AUTO) 63.9 %; PLT - PLATELET COUNT 215 10^3/uL (130-450); RED BLOOD COUNT 4.93 10^6/uL (4.20-5.40); RED CELL DISTRIBUTION WIDTH 13.7 % (12.0-15.0); WHITE BLOOD COUNT 10.2 x10^3/uL (4.8-10.8)
[2020-11-03 11:23] LABS: ALBUMIN 3.9 g/dL (3.2-5.5); ALBUMIN/GLOBULIN RATIO 1.3 (1.0-2.2); ALKALINE PHOSPHATASE 44 IU/L (42-121); ALT ALANINE AMINOTRANSFERASE 37 IU/L (10-60); AST ASPARTATE AMINOTRANSFERASE 41 IU/L (10-42); BILIRUBIN,TOTAL 0.7 mg/dL (0.2-1.0); BUN - BLOOD UREA NITROGEN 13 mg/dL (6-20); CALCIUM 9.4 mg/dL (8.5-10.3); CARBON DIOXIDE - CO2 25 mmol/L (21-32); CHLORIDE 107 mmol/L (101-111); CHOL/HDL RATIO 3.6 (<4.4); CHOLESTEROL 276 mg/dL; CREATININE 0.8 mg/dL (0.4-1.0); GLUCOSE 97 mg/dL (70-100); HDL CHOLESTEROL 76 mg/dL; LDL CHOLESTEROL,CALCULATED 179 mg/dL; LDL/HDL RATIO 2.4 (<4.4); VLDL CHOLESTEROL 21 mg/dL
== END 2020-11-03 10:47 | disposition home or self-care (01) ==
LOC: LAB 10:46
PROVIDERS: ATTEND Physician Assistant Medical
DX: I10 Essential (primary) hypertension (principal); E78.5 Hyperlipidemia, unspecified
CPT/HCPCS: 36415; 80053; 80061; 83721; 85025

== ENCOUNTER 2020-11-06 08:00 | Outpatient (CLI) | payer MEDICARE, BC | END 2020-11-06 23:59 | disposition home or self-care (01) | LOC: LAB.R 08:00 | PROVIDERS: ATTEND Physician Assistant Medical | DX: N39.0 Urinary tract infection, site not specified (principal) | CPT/HCPCS: 87077; 87086; 87181 ==

== ENCOUNTER 2020-11-21 11:49 | Outpatient (CLI) | payer MEDICARE, BC ==
--- NOTE | 2020-11-21 14:27 | Ultrasound Report ---
PROCEDURE: Head or Neck Soft Tissue INDICATIONS: THYROID NODULE TECHNIQUE: Real-time scanning was performed of the thyroid gland, with image documentation. COMPARISON: None FINDINGS: Right: Thyroid lobe measures 4.8 x 2.2 x 1.7 cm, and is homogeneous in echotexture. Left: Thyroid lobe measures 4.2 x 1.9 x 1.7 cm, and is homogenous in echotexture. Isthmus: 4 mm thick. Nodule number: One Location: Right lobe upper pole Size: 1.3 x 0.7 x 0.9 cm. Composition: Solid Echogenicity: Isoechoic/hypoechoic Shape: wider than tall. Margins: Smooth Echogenic foci: None Total points: 4 ACR TI-RADS category: Moderately suspicious Nodule number: 2 Location: Upper pole right lobe Size: 1.2 x 0.7 x 0.9 cm. Composition: Solid Echogenicity: Isoechoic Shape: wider than tall. Margins: Smooth Echogenic foci: None Total points: 3 ACR TI-RADS category: Mildly suspicious Nodule number: Three Location: Left lobe upper pole Size: 0.9 x 0.5 x 0.7 cm. Composition: Solid Echogenicity: Hypoechoic Shape: wider than tall. Margins: Smooth Echogenic foci: None Total points: 4 ACR TI-RADS category: Moderately suspicious Nodule number: Four Location: Left lobe upper pole Size: 1.0 x 0.9 x 0.7 cm. Composition: Solid Echogenicity: Hyperechoic Shape: wider than tall. Margins: Irregular Echogenic foci: Punctate Total points: 6 ACR TI-RADS category: Moderately suspicious Additional nonspecific similar thyroid nodules. IMPRESSION: Numerous bilateral thyroid nodules as above. Technically, no further follow-up necessary by consensus criteria below however given borderline size threshold, consider further evaluation for the dominant right upper pole nodule (designated nodule #1) in one year with ultrasound, depending o n clinical suspicion level. ACR TI-RADS definitions and recommendations: TI-RADS 1 (benign): 0 points. FNA not needed. TI-RADS 2 (not suspicious): 2 points. FNA not needed. TI-RADS 3 (mildly suspicious): 3 points. ? FNA if 2.5 cm or larger, follow up if 1.5 cm or larger (at 1, 3, and 5 years). TI-RADS 4 (moderately suspicious): 4-6 points. ? FNA if 1.5 cm or larger, follow up if 1 cm or larger (at 1, 2, 3, and 5 years). TI-RADS 5 (highly suspicious): 7 points or more. ? FNA if 1 cm or larger, follow up if 0.5 cm or larger (every year for 5 years). Reviewed by: Ramakrishna Tillman MD on 11/21/2020 2:26 PM PST Approved by: Ramakrishna Tillman MD on 11/21/2020 2:26 PM PST Station ID: [id number]
== END 2020-11-21 11:50 | disposition home or self-care (01) ==
LOC: DI 11:49
PROVIDERS: ATTEND Physician Assistant Medical
DX: E04.2 Nontoxic multinodular goiter (principal)

== ENCOUNTER 2021-02-06 11:27 | Outpatient (CLI) | payer MEDICARE, BC ==
[2021-02-06 12:37] LABS: ALBUMIN/GLOBULIN RATIO 1.3 (1.0-2.2); ALKALINE PHOSPHATASE 41 IU/L (42-121); ALT ALANINE AMINOTRANSFERASE 19 IU/L (10-60); AST ASPARTATE AMINOTRANSFERASE 22 IU/L (10-42); BILIRUBIN,TOTAL 1.2 mg/dL (0.2-1.0); BUN - BLOOD UREA NITROGEN 12 mg/dL (6-20); CALCIUM 9.2 mg/dL (8.5-10.3); CARBON DIOXIDE - CO2 26 mmol/L (21-32); CHLORIDE 109 mmol/L (101-111); CHOL/HDL RATIO 2.2 (<4.4); CHOLESTEROL 190 mg/dL; CREATININE 0.8 mg/dL (0.4-1.0); GFR - MDRD 71 (>89); GLUCOSE 92 mg/dL (70-100); HDL CHOLESTEROL 87 mg/dL; LDL CHOLESTEROL,CALCULATED 77 mg/dL; LDL/HDL RATIO 0.9 (<4.4); POTASSIUM 3.8 mmol/L (3.5-5.0); SODIUM 141 mmol/L (135-145); TRIGLYCERIDES 129 mg/dL; VLDL CHOLESTEROL 26 mg/dL
== END 2021-02-06 11:28 | disposition home or self-care (01) ==
LOC: LAB 11:27
PROVIDERS: ATTEND Physician Assistant Medical
DX: E78.5 Hyperlipidemia, unspecified (principal)
CPT/HCPCS: 36415; 80053; 80061; 83721

== ENCOUNTER 2021-08-08 11:14 | Outpatient (CLI) | payer MEDICARE, BC ==
[2021-08-08 12:47] LABS: ALBUMIN/GLOBULIN RATIO 1.3 (1.0-2.2); ALKALINE PHOSPHATASE 47 IU/L (42-121); ALT ALANINE AMINOTRANSFERASE 19 IU/L (10-60); AST ASPARTATE AMINOTRANSFERASE 20 IU/L (10-42); BUN - BLOOD UREA NITROGEN 15 mg/dL (6-20); CALCIUM 9.7 mg/dL (8.5-10.3); CARBON DIOXIDE - CO2 28 mmol/L (21-32); CHLORIDE 103 mmol/L (101-111); CHOL/HDL RATIO 2.3 (<4.4); CHOLESTEROL 168 mg/dL; CREATININE 0.8 mg/dL (0.4-1.0); GFR - MDRD 71 (>89); GLUCOSE 92 mg/dL (70-100); HDL CHOLESTEROL 72 mg/dL; LDL CHOLESTEROL,CALCULATED 71 mg/dL; SODIUM 139 mmol/L (135-145); TOTAL PROTEIN 7.1 g/dL (6.7-8.2); TRIGLYCERIDES 123 mg/dL; VLDL CHOLESTEROL 25 mg/dL
--- NOTE | 2021-08-08 13:07 | XRAY Report ---
PROCEDURE: Knee 3 View LT INDICATIONS: S/P LT KNEE REPLACEMENT TECHNIQUE: 5 views of the left knee were acquired. COMPARISON: Left knee MRI 12/16/2013. FINDINGS: Bones: Postsurgical changes are seen from a revision total knee arthroplasty. Hardware components are in expected positions. No signs of hardware loosening. No acute fracture is seen. Mild heterotopic o ssification is seen along the lateral femorotibial joint line. Soft tissues: No significant joint effusion. No suspicious soft tissue calcifications. IMPRESSION: Postsurgical changes from total knee arthroplasty. No acute osseous abnormality. Reviewed by: Austyn White MD on 08/08/2021 1:06 PM PST Approved by: Austyn White MD on 08/08/2021 1:06 PM PST Station ID: [id number]
== END 2021-08-08 11:15 | disposition home or self-care (01) ==
LOC: DI 11:14
PROVIDERS: ATTEND Orthopaedic Surgery
DX: Z96.652 Presence of left artificial knee joint (principal); E78.5 Hyperlipidemia, unspecified
CPT/HCPCS: 36415; 80053; 80061; 83721

== ENCOUNTER 2021-11-27 16:01 | Outpatient (CLI) | payer MEDICARE, BC ==
--- NOTE | 2021-11-28 08:36 | Mammography Report ---
BILATERAL DIGITAL SCREENING MAMMOGRAM 3D/2D: 11/27/2021 CLINICAL: Routine screening. Comparison is made to exams dated: 12/11/2018 mammogram and 02/27/2017 mammogram - [facility]. There are scattered fibroglandular elements in both breasts. No significant masses, calcifications, or other findings are seen in either breast. There has been no significant interval change. IMPRESSION: NEGATIVE There is no mammographic evidence of malignancy. A 1 year screening mammogram is recommended. This exam was interpreted at Station ID: [id number]. NOTE: For mammograms, a report in lay terms will be sent to the patient. Approximately 15% of breast malignancies will not be visualized mammographically. In the management of a palpable breast mass, a negative mammogram must not discourage biopsy of a clinically suspicious lesion. Electronically Signed By: Dafne brown/angie:11/27/2021 17:01:45 ACR BI-RADS Category 1: Negative 3341F PARENCHYMAL PATTERN: (A) - The breast(s) demonstrate(s) scattered fibroglandular densities. BI-RADS CATEGORY: (1) - 1 RECOMMENDATION: (ANNUAL) - Recommend routine annual screening mammography. [id number] 1 year screening LATERALITY: (B)
== END 2021-11-27 16:02 | disposition home or self-care (01) ==
LOC: DI.S 16:01
DX: Z12.31 Encounter for screening mammogram for malignant neoplasm of breast (principal); E78.5 Hyperlipidemia, unspecified
CPT/HCPCS: 36415; 80053; 80061; 83721

== ENCOUNTER 2022-03-13 09:09 | Outpatient (CLI) | payer MEDICARE, BC ==
[2022-03-13 09:40] LABS: ALBUMIN 3.9 g/dL (3.2-5.5); ALBUMIN/GLOBULIN RATIO 1.3 (1.0-2.2); ALKALINE PHOSPHATASE 38 IU/L (42-121); ALT ALANINE AMINOTRANSFERASE 18 IU/L (10-60); AST ASPARTATE AMINOTRANSFERASE 24 IU/L (10-42); BILIRUBIN,TOTAL 1.2 mg/dL (0.2-1.0); BUN - BLOOD UREA NITROGEN 20 mg/dL (6-20); CALCIUM 9.7 mg/dL (8.5-10.3); CARBON DIOXIDE - CO2 27 mmol/L (21-32); CHLORIDE 105 mmol/L (101-111); CHOL/HDL RATIO 2.1 (<4.4); CHOLESTEROL 173 mg/dL; CREATININE 0.7 mg/dL (0.4-1.0); GFR - MDRD 83 (>89); GLUCOSE 103 mg/dL (70-100); HDL CHOLESTEROL 82 mg/dL; LDL CHOLESTEROL,CALCULATED 74 mg/dL; LDL/HDL RATIO 0.9 (<4.4); SODIUM 141 mmol/L (135-145); TRIGLYCERIDES 84 mg/dL; VLDL CHOLESTEROL 17 mg/dL
== END 2022-03-13 09:10 | disposition home or self-care (01) ==
LOC: LAB 09:09
PROVIDERS: ATTEND Physician Assistant Medical
DX: E78.5 Hyperlipidemia, unspecified (principal)
CPT/HCPCS: 36415; 80053; 80061; 83721

== ENCOUNTER 2022-04-10 12:17 | Outpatient (CLI) | payer MEDICARE, BC ==
--- NOTE | 2022-04-10 18:29 | CT Report ---
PROCEDURE: CHEST WO INDICATIONS: PULMONARY NODULE TECHNIQUE: Noncontrast 1mm axial images were acquired from the pulmonary apices to the posterior costophrenic an gles. Axial 5 mm soft tissue kernel reconstructions were performed as well as 8 mm axial MIP and cor onal and sagittal 5 mm reformations. For radiation dose reduction, the following was used: automate d exposure control, adjustment of mA and/or kV according to patient size. COMPARISON: 10/24/2020, 08/31/2019 FINDINGS: Image quality: Excellent. Lungs and pleura: Within the right lower lobe, there is an ovoid nodule seen that measures up to 4 m m, as on series 4 image 234. This is stable from the prior examination. Tiny pulmonary nodules are se en elsewhere, which are not significantly changed compared to the prior examination. No definite new nodules are seen. No acute air space opacities. No pleural effusions or pneumothorax. Central and peripheral airways are patent and normal in caliber. Mediastinum: Heart size is normal. No pericardial effusion. No mediastinal adenopathy by size crit eria. Thoracic aorta and central pulmonary arteries are normal in size. Esophagus is normal in dyana stevie. No hiatal hernia. Bones and chest wall: No suspicious bony lesions. No vertebral body compression fractures. No axil flower or supraclavicular adenopathy by size criteria. A densely calcified left thyroid nodule is agai n seen, which is stable since 2019. Abdomen: Cholecystectomy clips are seen. Visualized upper abdominal solid organs and bowel loops a ppear normal in the absence of contrast. IMPRESSION: Tiny stable pulmonary nodules are seen. If this patient is not at high risk for lung cancer, then no specific imaging follow-up would be recommended. Incidental note is made of: Densely calcified left thyroid nodule, likely benign Cholecystectomy Reviewed by: Kalyan Bustillos MD on 04/10/2022 5:28 PM KIERAN Approved by: Kalyan Bustillos MD on 04/10/2022 5:28 PM KIERAN Station ID: [id number]
== END 2022-04-10 12:18 | disposition home or self-care (01) ==
LOC: DI 12:17
PROVIDERS: ATTEND Physician Assistant Medical
DX: R91.8 Other nonspecific abnormal finding of lung field (principal)

== ENCOUNTER 2022-05-18 12:49 | Outpatient (CLI) | payer MEDICARE, BC ==
--- NOTE | 2022-05-18 16:32 | DEXA Report ---
PROCEDURE: Dexa Spine and/or Hip INDICATIONS: OSTEOPOROSIS TECHNIQUE: Dual energy x-ray absorptiometry (DXA) was performed on a [employer] System. Regions measur ed are the AP Spine, femoral neck, and if needed forearm. COMPARISON: 04/05/2020 FINDINGS: Lumbar Spine: Bone Mineral Density 1.310 g/cm/cm,T score 1.1, normal, change from previous -0.8% Left Hip: Bone Mineral Density 0.804 g/cm/cm,T score -1.6, osteopenia, change from previous -7.6%, significant Left Femoral Neck: Bone Mineral Density 0.721 g/cm/cm, T score -2.3 osteopenia, (T score greater or equal to -1.0: NORMAL) (T score from -1.1 to -2.4: OSTEOPENIA) (T score less than or equal to -2.5 to: OSTEOPOROSIS) Impression: 1. Osteopenia elevates the patient's 10 year fracture risk. 2. Significant interval decrease in bone mineral density of the left hip compared to the prior study. Patients with diagnosis of osteoporosis or osteopenia should have regular bone mineral density assess ment. For those eligible for Medicare, routine testing is allowed once every 2 years. Testing frequ ency can be increased for patients who have rapidly progressing disease or for those who are receivin g medical therapy to restore bone mass. Reviewed by: Amy Morrison MD on 05/18/2022 4:31 PM PDT Approved by: Amy Morrison MD on 05/18/2022 4:31 PM PDT Station ID: [id number]
== END 2022-05-18 12:50 | disposition home or self-care (01) ==
LOC: DI 12:49
PROVIDERS: ATTEND Internal Medicine Rheumatology
DX: M85.89 Other specified disorders of bone density and structure, multiple sites (principal)

== ENCOUNTER 2022-12-10 11:41 | Outpatient (CLI) | payer MEDICARE, BC ==
[2022-12-10 12:23] LABS: ALBUMIN/GLOBULIN RATIO 1.3 (1.0-2.2); ALKALINE PHOSPHATASE 51 IU/L (42-121); ALT ALANINE AMINOTRANSFERASE 16 IU/L (10-60); AST ASPARTATE AMINOTRANSFERASE 22 IU/L (10-42); BILIRUBIN,TOTAL 1.3 mg/dL (0.2-1.0); BUN - BLOOD UREA NITROGEN 16 mg/dL (6-20); CALCIUM 9.6 mg/dL (8.5-10.3); CARBON DIOXIDE - CO2 26 mmol/L (21-32); CHLORIDE 107 mmol/L (101-111); CHOL/HDL RATIO 2.2 (<4.4); CHOLESTEROL 176 mg/dL; CREATININE 0.7 mg/dL (0.4-1.0); GFR - MDRD 83 (>89); GLUCOSE 106 mg/dL (70-100); HDL CHOLESTEROL 79 mg/dL; LDL CHOLESTEROL,CALCULATED 76 mg/dL; POTASSIUM 3.9 mmol/L (3.5-5.0); SODIUM 139 mmol/L (135-145); TOTAL PROTEIN 7.1 g/dL (6.7-8.2); TRIGLYCERIDES 105 mg/dL; VLDL CHOLESTEROL 21 mg/dL
== END 2022-12-10 11:42 | disposition home or self-care (01) ==
LOC: LAB 11:41
PROVIDERS: ATTEND Physician Assistant Medical
DX: E78.5 Hyperlipidemia, unspecified (principal)
CPT/HCPCS: 36415; 80053; 80061; 83721

== ENCOUNTER 2023-01-30 11:20 | Outpatient (CLI) | payer MEDICARE, BC ==
--- NOTE | 2023-01-31 11:22 | Mammography Report ---
BILATERAL DIGITAL SCREENING MAMMOGRAM 3D/2D: 01/30/2023 CLINICAL: Routine screening. Comparison is made to exams dated: 11/27/2021 mammogram, 12/11/2018 mammogram, 02/27/2017 mammogram, mammogram, and 06/11/2013 mammogram - [facility]. There are scattered areas of fibroglandular density in both breasts (category b / 25%-50% glandular t issue). There are benign calcifications in both breasts. No significant masses, calcifications, or other findings are seen in either breast. There has been no significant interval change. IMPRESSION: BENIGN There is no mammographic evidence of malignancy. A 1 year screening mammogram is recommended. Based on the Tyrer Cuzick model (a risk assessment model) the patients lifetime risk is 6.1% and her 10 year risk is 3.9%. According to the ACR, ACS, and NCCN guidelines, an annual breast MRI exam javier g with mammogram is recommended if the patients lifetime risk is 20% or greater. This exam was interpreted at Station ID: [id number]. NOTE: For mammograms, a report in lay terms will be sent to the patient. Approximately 15% of breast malignancies will not be visualized mammographically. In the management of a palpable breast mass, a negative mammogram must not discourage biopsy of a clinically suspicious lesion. Electronically Signed By: Albino kirby/angie:01/30/2023 13:36:19 letter sent: No_Letter ACR BI-RADS Category 2: Benign Finding(s) 3342F PARENCHYMAL PATTERN: (A) - The breast(s) demonstrate(s) scattered fibroglandular densities. BI-RADS CATEGORY: (2) - 2 Mammogram [id number] 1 year screening LATERALITY: (B)
== END 2023-01-30 11:21 | disposition home or self-care (01) ==
LOC: DI 11:20
DX: Z12.31 Encounter for screening mammogram for malignant neoplasm of breast (principal)

== ENCOUNTER 2023-01-30 11:21 | Outpatient (CLI) | payer MEDICARE, BC ==
--- NOTE | 2023-01-30 16:48 | Ultrasound Report ---
PROCEDURE: Head or Neck Soft Tissue INDICATIONS: THYROID NODULE TECHNIQUE: Real-time scanning was performed of the thyroid gland, with image documentation. COMPARISON: Thyroid ultrasound 11/21/2020 FINDINGS: Right: Thyroid lobe measures 4.6 x 1.6 x 1.8 cm, and is homogeneous in echotexture. Left: Thyroid lobe measures 4.3 x 1.6 x 1.8 cm, and is homogenous in echotexture. Isthmus: 0.3 cm thick. Nodule number: 1 Location: Right superior Size: 1.4 x 1.0 x 0.9 cm (previously 1.3 x 0.7 x 0.9 cm) Composition: Solid (2 points). Echogenicity: Isoechoic (1 point). Shape: wider than tall. Margins: Smooth (0 points). Echogenic foci: None (0 points). Total points: 3 ACR TI-RADS category: Mildly suspicious (3 points). Nodule number: 6 Location: Left Size: 0.9 x 0.9 cm. Composition: Solid (2 points). Echogenicity: Cannot be assessed (1 point). Shape: wider than tall. Margins: Ill-defined (0 points). Echogenic foci: Macrocalcification (1 point). Total points: 4 ACR TI-RADS category: Moderately suspicious (4-6 points). Nodule number: 7 Location: Left inferior Size: 1.2 x 1.4 x 1.1 cm (previously 0.8 x 0.9 x 0.9 cm) Composition: Solid (2 points). Echogenicity: Hypoechoic (2 points). Shape: wider than tall. Margins: Smooth (0 points). Echogenic foci: None (0 points). Total points: 4 ACR TI-RADS category: Moderately suspicious (4-6 points). Multiple additional bilateral thyroid nodules are seen that do not meet criteria for follow-up based on TI RADS guidelines. IMPRESSION: Multiple bilateral thyroid nodules as described above. Recommend follow-up ultrasound in one year. ACR TI-RADS definitions and recommendations: TI-RADS 1 (benign): 0 points. FNA not needed. TI-RADS 2 (not suspicious): 2 points. FNA not needed. TI-RADS 3 (mildly suspicious): 3 points. "FNA if 2.5 cm or larger, follow up if 1.5 cm or larger (at 1, 3, and 5 years). TI-RADS 4 (moderately suspicious): 4-6 points. "FNA if 1.5 cm or larger, follow up if 1 cm or larger (at 1, 2, 3, and 5 years). TI-RADS 5 (highly suspicious): 7 points or more. "FNA if 1 cm or larger, follow up if 0.5 cm or larger (every year for 5 years). Reviewed by: Austyn White MD on 01/30/2023 4:47 PM PDT Approved by: Austyn White MD on 01/30/2023 4:47 PM PDT Station ID: [id number]
== END 2023-01-30 11:22 | disposition home or self-care (01) ==
LOC: DI 11:21
PROVIDERS: ATTEND Physician Assistant Medical
DX: E04.2 Nontoxic multinodular goiter (principal)

== ENCOUNTER 2023-06-04 08:00 | Outpatient (CLI) | payer MEDICARE, BC | END 2023-06-04 23:59 | disposition home or self-care (01) | LOC: LAB 08:00 | PROVIDERS: ATTEND Physician Assistant | DX: R30.0 Dysuria (principal) | CPT/HCPCS: 87077; 87086; 87181 ==

== ENCOUNTER 2024-02-03 11:21 | Outpatient (CLI) | payer MEDICARE, BC ==
[2024-02-03 11:36] LABS: BASOPHILS # (AUTO) 0.1 10^3/uL (0.0-0.1); EOSINOPHILS % (AUTO) 0.4 %; HCT - HEMATOCRIT 48.3 % (37.0-47.0); HGB - HEMOGLOBIN 15.5 g/dL (12.0-16.0); LYMPHOCYTES # (AUTO) 1.9 10^3/uL (1.5-3.5); LYMPHOCYTES % (AUTO) 19.7 %; MEAN CORPUSCULAR HGB CONC 32.1 g/dL (32.0-36.0); MEAN CORPUSCULAR VOLUME 93.4 fL (81.0-99.0); MEAN PLATELET VOLUME 9.7 fL (7.9-10.8); MONOCYTES # (AUTO) 0.7 10^3/uL (0.0-1.0); MONOCYTES % (AUTO) 7.5 %; NEUTROPHILS # (AUTO) 6.7 10^3/uL (1.5-6.6); PLT - PLATELET COUNT 194 10^3/uL (130-450); RED BLOOD COUNT 5.17 10^6/uL (4.20-5.40); RED CELL DISTRIBUTION WIDTH 13.7 % (12.0-15.0); WHITE BLOOD COUNT 9.4 x10^3/uL (4.8-10.8)
[2024-02-03 11:52] LABS: ALBUMIN 4.1 g/dL (3.2-5.5); ALBUMIN/GLOBULIN RATIO 1.5 (1.0-2.2); ALKALINE PHOSPHATASE 45 IU/L (42-121); ALT ALANINE AMINOTRANSFERASE 10 IU/L (10-60); AST ASPARTATE AMINOTRANSFERASE 15 IU/L (10-42); BILIRUBIN,TOTAL 1.2 mg/dL (0.2-1.0); BUN - BLOOD UREA NITROGEN 14 mg/dL (6-20); CARBON DIOXIDE - CO2 30 mmol/L (21-32); CHLORIDE 105 mmol/L (101-111); CHOL/HDL RATIO 2.1 (<4.4); CHOLESTEROL 173 mg/dL; CREATININE 0.9 mg/dL (0.6-1.3); GFR - MDRD 62 (>89); GLUCOSE 98 mg/dL (74-104); HDL CHOLESTEROL 81 mg/dL; LDL CHOLESTEROL,CALCULATED 72 mg/dL; LDL/HDL RATIO 0.9 (<4.4); SODIUM 139 mmol/L (135-145); TOTAL PROTEIN 6.9 g/dL (6.4-8.9); TRIGLYCERIDES 100 mg/dL (48-352); VLDL CHOLESTEROL 20 mg/dL
[2024-02-03 12:06] LABS: THYROID STIMULATING HORMONE 1.38 uIU/mL (0.34-5.60)
== END 2024-02-03 11:22 | disposition home or self-care (01) ==
LOC: LAB 11:21
PROVIDERS: ATTEND Physician Assistant Medical
DX: E78.5 Hyperlipidemia, unspecified (principal); R91.8 Other nonspecific abnormal finding of lung field; I10 Essential (primary) hypertension
CPT/HCPCS: 36415; 80053; 80061; 83721; 84443; 85025

== ENCOUNTER 2024-03-10 12:38 | Outpatient (CLI) | payer MEDICARE, BC ==
--- NOTE | 2024-03-11 08:40 | Mammography Report ---
BILATERAL DIGITAL SCREENING MAMMOGRAM 3D/2D: 03/10/2024 CLINICAL: Routine screening. Sister with breast cancer. Comparison is made to exams dated: 01/30/2023 mammogram, 11/27/2021 mammogram, and 12/11/2018 mammogram - [facility]. There are scattered areas of fibroglandular density in both breasts (category b / 25%-50% glandular t issue). There are benign calcifications in both breasts. No significant masses, calcifications, or other findings are seen in either breast. There has been no significant interval change. IMPRESSION: BENIGN There is no mammographic evidence of malignancy. A 1 year screening mammogram is recommended. Based on the Tyrer Cuzick model (a risk assessment model) the patient's lifetime risk is 11.6% and he r 10 year risk is 8.0%. According to the ACR, ACS, and NCCN guidelines, an annual breast MRI exam ava ng with mammogram is recommended if the patient's lifetime risk is 20% or greater. This exam was interpreted at Station ID: [id number]. NOTE: For mammograms, a report in lay terms will be sent to the patient. Approximately 15% of breast malignancies will not be visualized mammographically. In the management of a palpable breast mass, a negative mammogram must not discourage biopsy of a clinically suspicious lesion. Electronically Signed By: Amy higuera/angie:03/10/2024 16:01:09 letter sent: No_Letter ACR BI-RADS Category 2: Benign Finding(s) 3342F PARENCHYMAL PATTERN: (A) - The breast(s) demonstrate(s) scattered fibroglandular densities. BI-RADS CATEGORY: (2) - 2 RECOMMENDATION: (ANNUAL) - Recommend routine annual screening mammography. [id number] 1 year screening LATERALITY: (B)
== END 2024-03-10 12:39 | disposition home or self-care (01) ==
LOC: DI 12:38
DX: Z12.31 Encounter for screening mammogram for malignant neoplasm of breast (principal); Z80.3 Family history of malignant neoplasm of breast; R92.323 Mammographic fibroglandular density, bilateral breasts; R92.1 Mammographic calcification found on diagnostic imaging of breast

== ENCOUNTER 2024-03-10 12:39 | Outpatient (CLI) | payer MEDICARE, BC ==
--- NOTE | 2024-03-10 16:27 | Ultrasound Report ---
PROCEDURE: Soft Tissue Head or Neck INDICATIONS: THYROID NODULE TECHNIQUE: Real-time scanning was performed of the thyroid gland, with image documentation. COMPARISON: 01/30/2023 FINDINGS: Right: Thyroid lobe measures 4.0 x 1.7 x 1.9 cm. Left: Thyroid lobe measures 4.4 x 1.7 x 1.9 cm Isthmus: 0.4 cm thick. Echotexture: Homogeneous. Nodule number: One Location: Right superior pole Size: 1.6 x 1.1 x 1.1 cm. Previously 1.4 x 1.0 x 0.9 cm. Composition: Solid (2 points). Echogenicity: Isoechoic (1 point). Shape: wider than tall (0 points). Margins: Smooth (0 points). Echogenic foci: None (0 points). Total points: 3 ACR TI-RADS category: TI-RADS 3: Mildly suspicious. Nodule number: 6 Location: Left midpole Size: 1.0 x 1.0 cm. Previously 0.9 x 0.9 cm. Composition: Solid (2 points). Echogenicity: Hyperechoic (1 point). Shape: wider than tall (0 points). Margins: Smooth (0 points). Echogenic foci: Macrocalcification (1 point). Total points: 4 ACR TI-RADS category: TI-RADS 4: Moderately suspicious. Nodule number: 7 Location: Left inferior pole Size: 1.3 x 1.5 x 1.4 cm. Previously 1.2 x 1.4 x 1.1 cm. Composition: Solid (2 points). Echogenicity: Hypoechoic (2 points). Shape: wider than tall (0 points). Margins: Smooth (0 points). Echogenic foci: None (0 points). Total points: 4 ACR TI-RADS category: TI-RADS 4: Moderately suspicious. IMPRESSION: Interval growth of thyroid nodule 7, which now meets size criteria for biopsy. ACR TI-RADS definitions and recommendations: TI-RADS 1 (benign): 0 points. FNA not needed. TI-RADS 2 (not suspicious): 2 points. FNA not needed. TI-RADS 3 (mildly suspicious): 3 points. "FNA if 2.5 cm or larger, follow up if 1.5 cm or larger (at 1, 3, and 5 years). TI-RADS 4 (moderately suspicious): 4-6 points. "FNA if 1.5 cm or larger, follow up if 1 cm or larger (at 1, 2, 3, and 5 years). TI-RADS 5 (highly suspicious): 7 points or more. "FNA if 1 cm or larger, follow up if 0.5 cm or larger (every year for 5 years). Reviewed by: Eugene Smith MD on 03/10/2024 4:26 PM PDT Approved by: Eugene Smith MD on 03/10/2024 4:26 PM PDT Station ID: [id number]
== END 2024-03-10 12:40 | disposition home or self-care (01) ==
LOC: DI 12:39
PROVIDERS: ATTEND Physician Assistant Medical
DX: E04.2 Nontoxic multinodular goiter (principal)

== ENCOUNTER 2024-04-08 12:36 | Outpatient (CLI) | payer MEDICARE, BC ==
[~2024-04-08 12:36] MED LIST: LIDOCAINE-MPF 1% 5 ML VIAL ONE
[2024-04-08] MEDS: LIDOCAINE-MPF 1% 5 ML VIAL TD ONE (14:06)
--- NOTE | 2024-04-08 16:00 | Ultrasound Report ---
PROCEDURE: FNA Bx w/US Gdn 1st Les INDICATIONS: THYROID NODULE TECHNIQUE: The indications, alternatives, benefits, risks, and complications of the procedure were explained to the patient. Written informed consent was obtained and placed in the chart. The area of interest wa s examined sonographically and a site was chosen for ultrasound guided percutaneous sampling. The sk in was prepared and draped in the usual fashion, and anesthetized with 1% lidocaine infiltrated from the skin down to the lesion. Multiple passes were then performed, with contents emptied into an appr [facility] pathology specimen container. A bandage was applied to the area of access at completion of t he study. COMPARISON: Thyroid ultrasound 03/10/2024 FINDINGS: Location(s) of lesion(s) sampled: Left inferior posterior (nodule #7 on prior ultrasound) Compton: 25 gauge hypodermic needles. Number of passes: 6 Medications: 1% lidocaine for local anaesthesia. Complications: None. IMPRESSION: Successful ultrasound-guided left thyroid nodule fine needle aspiration, with cytology results triny meyers Reviewed by: Austyn White MD on 04/08/2024 3:59 PM PDT Approved by: Austyn White MD on 04/08/2024 3:59 PM PDT Station ID: [id number]
== END 2024-04-08 12:37 | disposition home or self-care (01) ==
LOC: DI 12:36
PROVIDERS: ATTEND Physician Assistant Medical
DX: E04.1 Nontoxic single thyroid nodule (principal)
CPT/HCPCS: 10005